=== PATIENT | female | born 1950 ===

== ENCOUNTER 2018-04-23 06:36 | Day surgery (SDC) | payer BC, MEDICARE ==
[~2018-04-23 06:36] MED LIST: Buffered Lidocaine 0.9% SYRIN* 5 ML/SYR SYRINGE INTRADERM ONE
[2018-04-23] MEDS ORDERED: Buffered Lidocaine 0.9% SYRIN* 5 ML/SYR SYRINGE ONE (07:20)
[2018-04-23] MEDS ORDERED: Midazolam* 1 MG/ML 5 ML VIAL (5 MG) ONE (07:30)
[2018-04-23] MEDS ORDERED: fentaNYL* 50 MCG/ML 2 ML VIAL (100 MCG VIAL) ONE (07:30)
[2018-04-23] MEDS ORDERED: Lidocain 1% EPI 1:100,000 * 30 ML MDV ONE (07:40)
[2018-04-23] MEDS ORDERED: Propofol* 10 MG/ML 20 ML BTL IV PUSH ONE (08:03)
[2018-04-23] MEDS ORDERED: Bupivacaine 0.5% SDV PF* 30ML VIAL ONE (08:07)
[2018-04-23] MEDS ORDERED: Naloxone* 0.4 MG/ML 1 ML VIAL IV PRN (08:46)
[2018-04-23] MEDS ORDERED: Ondansetron ODT TAB* 4 MG PO PRN (08:46)
[2018-04-23 09:27] VITALS: BP 113/76
--- NOTE | 2018-04-24 01:53 | OP ---
DATE OF OPERATION: 04/23/18 - [facility] DATE OF : 52 SURGEON: Augusto Patterson MD ORTHOPEDIC BRACE MAKER: GREG Calderon ANESTHESIOLOGIST: Dr. Heydi Gonzalez. ANESTHESIA: Local MAC. PRE-OP DIAGNOSIS: Right middle trigger finger. POST-OP DIAGNOSIS: Right middle trigger finger. OPERATIVE PROCEDURE: Right middle trigger finger release. INDICATIONS: Jodee has had her trigger finger injected; it has come back. She wants to get it released. We talked about risks and benefits including the risk of nerve injury. She wanted to proceed. ESTIMATED BLOOD LOSS: 2 mL. COMPLICATIONS: None. FINDINGS: See above and below. DESCRIPTION OF PROCEDURE: Jodee was seen in the preoperative holding area. The correct side, site and procedure were identified. We came back to the operating room where we had a time out and then I infiltrated the operative area with 0.5% Marcaine. The arm was then prepped and draped in the usual fashion and time-out was performed. The arm was exsanguinated with an Esmarch and the tourniquet inflated to 250 mmHg. I then made a 1 cm incision involving the distal palmar crease and these were made obliquely over the middle finger A1 janie area. Dissection was bluntly carried down and full-thickness flaps were raised off the tendon sheath. I then placed a couple of Ragnell retractors to protect the digital nerves. I released the A1 janie on the radial third of the janie. The release was completed distally and proximally with tenotomy scissors and I had released just the leading edge of the A2 janie as well. Once everything was completely released, we irrigated out the wound. The skin was closed with 4-0 nylon suture. The wound was dressed and she was taken to the recovery room in stable condition. [id number]/[facility] #: [id number] MTDD
== END 2018-04-23 12:20 | disposition home or self-care (01) ==
LOC: OR 06:36
PROVIDERS: ATTEND Orthopaedic Surgery Hand Surgery
DX: M65.331 Trigger finger, right middle finger (principal); I10 Essential (primary) hypertension; J30.89 Other allergic rhinitis; K90.0 Celiac disease
CPT/HCPCS: J2250; J2704; J3010